=== PATIENT | female | born 1990 | race Caucasian/White ===

== ENCOUNTER → 2025-07-02 | Outpatient (CLI) | payer BC, SELFPAY ==
[2025-07-02 10:44] LABS: Basophils # (Auto) 0.1 Thou/mm3 (0.0-0.2); Basophils % (Auto) 1 % (0-2.5); Eosinophils # (Auto) 0.3 Thou/mm3 (0.0-0.5); Eosinophils % (Auto) 2 % (0-10); Hematocrit 37.7 % (36.0-46.0); Hemoglobin 11.6 g/dL (12.0-16.0); Immature Granulocytes Auto 0.05 Thou/mm3 (0.00-0.00); Lymphocytes # (Auto) 2.9 Thou/mm3 (1.0-4.8); Lymphocytes % (Auto) 21 % (10-50); Mean Corpuscular HGB Conc 30.8 g/dl (31.0-37.0); Mean Corpuscular Hemoglobin 26.1 pg (25.0-35.0); Mean Corpuscular Volume 85 fL (80-100); Monocytes # (Auto) 0.9 Thou/mm3 (0.0-0.8); Monocytes % (Auto) 6 % (0-12); Neutrophils # (Auto) 10.1 Thou/mm3 (1.8-7.7); Neutrophils % (Auto) 71 % (37-80); Nucleated Red Blood Cell # 0.00 Thou/mm3 (0.00-0.00); Nucleated Red Blood Cell % 0 /100 WBC (0); Platelet Count 525 Thou/mm3 (140-440); RDW Standard Deviation 43.0 fL (36.4-46.3); Red Blood Count 4.44 Miln/mm3 (4.00-5.20); White Blood Count 14.3 Thou/mm3 (3.6-11.0)
[2025-07-02 10:58] LABS: Alanine Aminotransferase 11 U/L (10-49); Albumin, Serum 4.2 gm/dL (3.5-5.0); Albumin/Globulin Ratio 1.7 (1.2-2.2); Alkaline Phosphatase 274 U/L (46-116); Anion Gap 9 (7-16); Aspartate Amino Transferase 21 U/L (0-34); BUN/Creatinine Ratio 10 Ratio (12-20); Bilirubin,Total 1.1 mg/dL (0.3-1.2); Blood Urea Nitrogen 7 mg/dL (9-23); Calcium 9.5 mg/dL (8.3-10.6); Calcium (Corrected) 9.5 mg/dL (8.5-10.1); Carbon Dioxide 22.3 mMol/L (20.0-31.0); Chloride 106 mMol/L (98-107); Creatinine (Component) 0.7 mg/dL (0.6-1.3); Globulin 2.5 gm/dL (2.3-3.5); Glucose 77 mg/dL (74-106); Osmolality,Calculated 270 (275-295); Potassium 4.6 mMol/L (3.4-5.1); Sodium 137 mMol/L (136-145); Total Protein 6.7 gm/dL (5.7-8.2); eGFR > 60 See Note
[2025-07-02 11:54] LABS: INR 0.9 (0.9-1.3); Partial Thromboplastin Time 25.4 Seconds (22.0-36.0); Prothrombin Time 10.1 Seconds (9.0-12.2)
[2025-07-02 12:50] LABS: Syphilis Nonreactive (Nonreactive)
== END | disposition home or self-care (01) ==
LOC: COPL 09:39
PROVIDERS: PCP Family Medicine; Referring Provider Specialist; Visit Provider Specialist
DX: Z34.83 Encounter for supervision of other normal pregnancy, third trimester (principal)
CPT/HCPCS: 36415; 80053; 85025; 85610; 85730; 86780; 86850; 86900; 86901

== ENCOUNTER 2025-07-03 05:44 | Inpatient (IN) | payer BC, SELFPAY ==
--- NOTE | 2025-06-29 08:07 | ESHP_ITS ---
RE: ALEXIS VAN : 1990 DATE OF ADMISSION: 07/03/2025 DATE OF SURGERY: 07/03/2025 HISTORY OF PRESENT ILLNESS: This is a 35-year-old 5, para 2-0-2-2 with intrauterine at 39 weeks and 1 day on 07/03/2025, who presents for repeat delivery. She reports occasional contractions. She denies any leaking or bleeding. She reports normal movements. ALLERGIES: NO KNOWN DRUG ALLERGIES. MEDICATIONS: 1. vitamin 1 p.o. daily. 2. Aspirin 81 mg 1 p.o. daily. PAST MEDICAL HISTORY: Anxiety disorder, scoliosis, depression, congenital uterine anomaly, left rudimentary horn. PAST SURGICAL HISTORY: delivery in 06/2022. SOCIAL HISTORY: She denies any alcohol, drug use, or smoking. FAMILY HISTORY: Denies. OBSTETRIC HISTORY: 2019, 40-week normal vaginal delivery, 6 pounds 13 ounce female. No complications. 06/2022, 40-week delivery, 6 pound 14 ounce female. No complications. REVIEW OF SYSTEMS: She denies any chest pain, palpitations, cough, fever, shortness of breath or lower extremity pain. PHYSICAL EXAMINATION: VITAL SIGNS: Blood pressure 110/69, heart rate 88, respirations 18, temperature 98.6, weight 166 pounds. HEENT: Oropharynx and sclerae are clear. LUNGS: Clear to auscultation bilaterally. HEART: Regular rate and rhythm. ABDOMEN: Gravid, term size. Old Pfannenstiel scar noted. EXTREMITIES: Nontender. SKIN: No gross rashes or lesions. NEUROLOGIC: No focal deficits. ASSESSMENT: Intrauterine at 39 weeks and 1 day. Previous delivery. Elects repeat delivery. PLAN: Repeat delivery. Informed consent was obtained. The patient was made aware of the risks, complications, alternatives, and benefits of the proposed procedure and she agrees. DT: 07:06:57 TT: 08:05:00 Ref: [id number] - TID: [id number] MTDD
[2025-07-03] VITALS (17 sets, daily range): BP systolic 88–118; BP diastolic 56–89; PULSE 65–98; RESP 12–20; TEMP 36.3–36.7; O2SAT 96–100; BMI 27.3
[2025-07-03] MEDS: RINGERS LACTATED 1000 ML 1,000 ML 100 ML IV (06:00)
[2025-07-03] MEDS: ceFAZolin/D5W 2 GM IV 2 GM/100 ML BAG IV (07:13)
[2025-07-03] MEDS: FAMOTIDINE INJ 10 MG/ML VIAL 2 ML 20 MG IV (07:14)
[2025-07-03] MEDS: CITRIC ACID/SODIUM CITR 15 ML UDC (BICITRA) 30 ML PO (07:14)
--- NOTE | 2025-07-03 07:16 | PD.GYNPROC ---
Operative Note - STAFF THERAPIST Procedure Date of procedure: 07/03/25 Procedure Performed: Repeat Low Transverse C/S via Pfanensteil Skin Incision Removal of keloid scar Right ovarian cystectomy Indication: Viable IUP 39w1d by best dates. Previous C/S Desires repeat C/S Pre-Op diagnosis: Viable IUP 39w1d by best dates. Previous C/S Desires repeat C/S Post-Op diagnosis: Viable IUP 39w1d by best dates. Previous C/S Desires repeat C/S Right ovarian cyst Anesthesia type: Spinal Procedure description: After proper informed consent was obtained and the patient was made aware of the risks, complications, alternatives and benefits of the proposed procedure she was taken to the operating room where she underwent induction of spinal anesthesia. She was prepped and draped in the usual sterile fashion. A timeout was performed.? A Pfannenstiel skin incision was made and the keloid scar removed. Using the Bovie the incision was carried through to the underlying layer of fascia. The fascia was nicked in the midline incision and the incision was extended bilaterally with the Bovie. The inferior aspect of the fascial incision was grasped with Kelechi clamps elevated and the underlying rectus muscle dissected off with the Bovie. The superior aspect the fascial incision was grasped with Kelechi clamps elevated and the underlying rectus muscle dissected off with the Bovie. The rectus muscles were in the midline. The peritoneum was grasped between 2 Alfredo clamps and entered sharply with the Metzenbaum scissors. The peritoneum was extended superiorly and inferiorly with good visualization of the bladder. The vesicouterine peritoneum was incised transversely and the bladder flap created digitally. A [place] blade was inserted. A low transverse incision was made in the uterus with a scapel and the incision was extended digitally. The infant's head delivered and the mouth and nose were suctioned with the bulb suction. Nuchal cord reduced. The shoulder and body delivered atraumatically. The cord was clamped after 30 second delayed cord clamping and the cord was cut.? The infant was handed off to the waiting Pediatric staff, cord blood was collected for lab testing. The placenta was removed complete and intact. The uterus was exteriorized and cleared of all clots and debris. The uterine incision was closed with #1-0 chromic catgut suture in a running interlocking fashion. A second layer of the same suture was used to imbricate the first layer and obtain excellent hemostasis. The vesicouterine peritoneum was closed with 2-0 chromic catgut suture in a running fashion. The firm uterus was returned to the abdomen. The gutters were cleared of all clots and debris. The peritoneum was closed with 0 chromic catgut suture in running fashion. The rectus muscle was closed with 0 chromic catgut suture. The fascia was closed with 0 Vicryl beginning at each angle and ending in the center in a running fashion. The subcutaneous tissue was irrigated with warmed normal saline solution and found to be hemostatic. The subcutaneous tissue was closed with 2-0 chromic catgut suture in a running fashion. The skin was closed with 4-0 Monocryl. A Dermabond Prineo dressing was applied and a sterile pressure dressing was applied.? She tolerated the procedure well. Counts were correct. I discussed with the patient the nature of her condition, intraoperative findings and expectation for recovery all? questions answered. Specimen: other (Right ovarian cyst.) Estimated blood loss (ml): 600 Findings: Live infant, APGARS 9/9 Wt 3300g Clear amniotic fluid Cephalic. Placenta removed complete and intact Left uterine rudimentary horn. Right ovarian cyst 1.0 x 1.0 cm. Complications: none Surgical staff Louie Operation Date: 07/03/25 07:45 <No data on this case meets the specified criteria> Louie Hernandez [employer] Diagnosis Discharge Diagnosis (1) delivery delivered: Status: Acute (2) Rudimentary uterine horn: Status: Acute (3) Ovarian cyst, right: Status: Acute Problem List Completed Was Problem List Reviewed/Reconciled?: Yes
--- NOTE | 2025-07-03 08:25 | PD.LDDS ---
DS: Providers Provider Date of admission: 07/03/25 05:44 Primary care physician: Jeanmarie Wright MD Admitting Provider: Rodolfo Moura MD Attending Provider on Admission: Rodolfo Moura MD Consults: 07/03/25 07:50 Referral Routine Comment: Attending Provider on DC: Rodolfo Moura MD Discharging Provider: Rodolfo Moura MD DS: Diagnosis Discharge Diagnosis (1) delivery delivered: Status: Acute (2) Rudimentary uterine horn: Status: Acute (3) Ovarian cyst, right: Status: Acute Problem List Completed Was Problem List Reviewed/Reconciled?: Yes Summary/Hosp Course Brief History: This is a 35-year-old 5, para 2-0-2-2 with intrauterine at 39 weeks and 1 day on 07/03/2025, who presents for repeat delivery. She reports occasional contractions. She denies any leaking or bleeding. She reports normal movements. Repeat C/S and Right ovarian cystectomy 07/03 Viable female , APGARS 9/9. 3330g course unremarkable. Peripartum Data Delivery Method: Low Transverse Episiotomy Description: None Procedures: Procedures Operation Date: 07/03/25 07:45 <No data on this case meets the specified criteria> [place] 1: Gender: Female Time Spent with Patient Time attestation: Total time spent providing and/or coordinating discharge services: Exam Vital Signs Pulse BP 98 108/69 07/03/25 05:57 07/03/25 05:57 Discharge Plan Plan Patient Disposition: HOME (Self Care) Patient condition on transfer: Stable Prescriptions/Referrals Prescriptions/Med Rec: New ibuprofen 800 mg tablet 800 mg PO Q6H PRN (Reason: pain) Qty: 30 0RF Continued hydrocodone-acetaminophen 5-325 mg tablet 1 tab PO Q4H MDD 5 PRN (Reason: pain) Qty: 20 0RF Discontinued ibuprofen 800 mg tablet 800 mg PO Q6H PRN (Reason: pain) Qty: 20 0RF ibuprofen 800 mg tablet 800 mg PO Q8H PRN (Reason: pain) Qty: 30 0RF No Action prenat.vits,arvind,dyo-talv-wxhgs Tablet 1 tab PO QDAY Referrals: Kyle (PCP),MD Jeanmarie [Primary Care Provider] - Patient/Caregiver Discharge Instructions Discharge Activity: activity as tolerated Other Discharge Activity Instructions:: Follow up office in [address] Moura She already has a Rx for [place]. Education Materials: C Section Dc Print Language: Occitan Stand Alone Forms: Nancy Award Info., Patient Portal Info Letter Planned Discharge Date 07/05/25
--- NOTE | 2025-07-03 08:26 | OBDSUM_ITS ---
Data ([facility]arter) Data Hx Section: Yes : 5 Term: 0 : 0 Livin Abortions: Spontaneous & Theraputic: 1 Delivery Data (Carter) Labor Data Induction/Augmentation Agent: None ROM date: 07/03/25 ROM time: : Amniotic membrane rupture type: Artificial Amniotic fluid description: Clear Delivery Data EDC: 07/09/25 EDC calculated by:: LMP/early US confirmation delivery date: 07/03/25 delivery time: Gestational age (weeks): 39 Gestational age (days): 1 Placenta delivery date: 07/03/25 Placenta delivery time: Delivered by: Rodolfo Moura Delivery nurse: Antonio Collins RN [place] nurse: Rod NIETO RN Lead Network Engineer at delivery: Yes (Celina Hoyt) Support person(s) at delivery: fob Delivery Method Delivery method: Low Transverse Presentation: Vertex position: OP Anesthesia Type Anesthesia Type: None Anesthesia type: Spinal Placenta Placenta delivery description: Manual Removal Cord blood sent to lab: Yes cord blood collection: Cord Blood Type Episiotomy Episiotomy description: None EBL Estimated blood loss (ml): 600 Umbilical Cord cord description: 3 Vessels Additional Procedures Right ovarian cystectomy Complications Complications: None [place] Data (Carter) Data [place]'s gender: Female weight (gms): 7 lb 4.404 oz Weight (pounds): 7 lbs and 4.4 ozs 1 minute: 9 5 minutes: 9
[2025-07-03] MEDS: OXYTOCIN in NS 20 units 20 UNIT/1,000 ML BAG 125 UNIT IV ×2 (10:12→17:18)
[2025-07-03] MEDS: ONDANSETRON INJ 2 MG/ML INJ 2 ML 4 MG IVP ×2 (14:00→23:26)
[2025-07-03 14:12] LABS: Basophils # (Auto) 0.1 Thou/mm3 (0.0-0.2); Basophils % (Auto) 0 % (0-2.5); Eosinophils # (Auto) 0.0 Thou/mm3 (0.0-0.5); Eosinophils % (Auto) 0 % (0-10); Hematocrit 35.4 % (36.0-46.0); Hemoglobin 11.2 g/dL (12.0-16.0); Immature Granulocytes Auto 0.15 Thou/mm3 (0.00-0.00); Lymphocytes # (Auto) 3.6 Thou/mm3 (1.0-4.8); Lymphocytes % (Auto) 13 % (10-50); Mean Corpuscular HGB Conc 31.6 g/dl (31.0-37.0); Mean Corpuscular Hemoglobin 26.7 pg (25.0-35.0); Mean Corpuscular Volume 85 fL (80-100); Monocytes # (Auto) 2.0 Thou/mm3 (0.0-0.8); Monocytes % (Auto) 7 % (0-12); Neutrophils # (Auto) 22.7 Thou/mm3 (1.8-7.7); Neutrophils % (Auto) 79 % (37-80); Nucleated Red Blood Cell # 0.00 Thou/mm3 (0.00-0.00); Nucleated Red Blood Cell % 0 /100 WBC (0); Platelet Count 495 Thou/mm3 (140-440); RDW Standard Deviation 43.8 fL (36.4-46.3); Red Blood Count 4.19 Miln/mm3 (4.00-5.20); White Blood Count 28.6 Thou/mm3 (3.6-11.0)
[2025-07-03] MEDS: KETOROLAC INJ 30 MG/ML VIAL IVP (15:49)
[2025-07-03] MEDS: RINGERS LACTATED 1000 ML 1,000 ML 999 ML IV (15:50)
[2025-07-03] MEDS: PROMETHAZINE INJ 25 MG in SODIUM CHLORIDE 0.9% 50 ML IV (16:08)
--- NOTE | 2025-07-03 16:28 | PC.CC ---
Grab Hooker received OB referral due to hx of anxiety and depression. Bedside nurse reported Pt had just gotten out of [facility] and will not discharge until Sunday07/05/25- requesting to Talent Manager to conduct assessment tomorrow 07/04/25.
[2025-07-03] MEDS: FUROSEMIDE INJ 10 MG/ML VIAL 2 ML 20 MG IVP (19:17)
[2025-07-03] MEDS: HYDROcodone/APAP 5/325 TABLET 1 TAB PO (23:27)
[2025-07-04] MEDS: RINGERS LACTATED 1000 ML 1,000 ML 100 ML IV (01:39)
[2025-07-04 04:00] VITALS: BP 95/60; PULSE 76; RESP 16; TEMP 36.5; O2SAT 96
[2025-07-04 08:00] VITALS: BP 95/66; PULSE 72; RESP 17; TEMP 36.7; O2SAT 96
[2025-07-04] MEDS: DOCUSATE SOD 100 MG CAPSULE PO (08:58)
[2025-07-04] MEDS: IBUPROFEN TAB 400 MG TABLET 800 MG PO (08:58)
--- NOTE | 2025-07-04 10:54 | PC.CC ---
INSURANCE SERVICE REPRESENTATIVEAurea, met with patient [id number] to do initial assessment due to scoring greater than 10 on post- depression screening. INSURANCE SERVICE REPRESENTATIVE introduced herself, role in the agency, reason for visit, and discussed limits of confidentiality. Patient appeared alert and oriented to self, time, place, and situation. Patient appears stated age. Patient made good eye contact. Patient?s attitude appeared pleasant and cooperative. Patient?s behavior appeared ordinary. Patient?s mood appears ordinary. No signs of delusions or hallucinations. This is 35-year-old, , life partnered female who presented to the hospital to deliver her daughter, Michelle Longoria. Patient confirmed her address and phone number. Patient resides in a home with her fiance, Rolando Frye, and two daughters (ages: 4 y/o and 3 y/o). 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 Patient is independent with all daily activities; she denies any DME use. Patient declined any history or current substance use. Patient declined any involvement with CWS. Patient declined any domestic violence at home. 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 Patient reported that her PCP-Dr. Wright was managing her antidepressants. Prior to , patient was taking sertraline. Patient stopped due to her and feeling sick when taking medication. Patient was referred to a therapist; however, at the time, it was too expensive. Patient reported that she believes her anxiety was environmental duie to living with her in-law's at the time. During her second , patient also experienced the of her mother. Patient denies any history of suicide attempts, 5150 holds. Patient denied any HI, SI. Rolando will remain with patient to assist her and patient does have her in-laws that can help her as well. SW provided psychoeducation regarding baby blues and Post- Depression, as well as counseling groups at [facility]. SW provided community resources: Warm Line. SW provided information for private pscyhiatrist: [facility], [facility].
[2025-07-04 12:00] VITALS: BP 95/62; PULSE 85; RESP 17; TEMP 36.7; O2SAT 97
[2025-07-04] MEDS: HYDROcodone/APAP 5/325 TABLET 1 TAB PO (15:16)
--- NOTE | 2025-07-04 15:26 | PD.LDDS ---
DS: Providers Provider Date of admission: 07/03/25 05:44 Primary care physician: Jeanmarie Wright MD Admitting Provider: Rodolfo Moura MD Attending Provider on Admission: Rodolfo Moura MD Consults: 07/03/25 07:50 Referral Routine Comment: Attending Provider on DC: Amber Tran MD Discharging Provider: Amber Tran MD DS: Diagnosis Discharge Diagnosis (1) delivery delivered: Status: Acute (2) Ovarian cyst, right: Status: Acute Problem List Completed Was Problem List Reviewed/Reconciled?: Yes Summary/Hosp Course Brief History: This is a 35-year-old 5, para 2-0-2-2 with intrauterine at 39 weeks and 1 day on 07/03/2025, who presents for repeat delivery. She reports occasional contractions. She denies any leaking or bleeding. She reports normal movements. Repeat C/S and Right ovarian cystectomy 07/03 Viable female infant , APGARS 9/9. 3330g course unremarkable. --- Henny is doing well on POD1 s/p uncomplicated RLTCS and right ovary cystectomy. She strongly desires to go home this evening since she has two young daughters that she wishes to be home with. She has had an uncomplicated post-operative course, meeting all milestones and feels ready for discharge home. She is ambulating without lightheadedness, tolerating regular diet no n/v, spontaneously voiding without issue. She has no chest pain or shortness of breath. No fevers or chills. Pain well controlled. Vitals normal, benign exam. Hemodynamically stable with no evidence of infection. Post-op Hgb 11.2 from 11.6. Peripartum Data Delivery Method: Low Transverse Episiotomy Description: None Procedures: Procedures Operation Date: 07/03/25 07:45 Actual Procedure Side Surgeon p in OB Rodolfo Moura MD Status at Discharge Functional status at discharge: independent ambulation Overall status at discharge: patient is back to baseline Time Spent with Patient Time attestation: Total time spent providing and/or coordinating discharge services: Exam Vital Signs Temp Pulse Resp BP Pulse Ox O2 Del Method 98.0 F 85 17 95/62 97 Room Air 07/04/25 12:00 07/04/25 12:00 07/04/25 12:00 07/04/25 12:00 07/04/25 12:00 07/04/25 12:00 Narrative Exam General: well developed, well nourished, no acute distress, conversant Cardiac: normal heart rate Lungs: breathing without distress Abdomen: soft, post-gravid, non-tender, no rebound or guarding, pfannenstiel incision covered by dry/clean/intact prineo bandage. Incision well reapproximated. No erythema, drainage or induration. Fundus firm at u-2cm. Extremities: no pain with palpation of calves, trace edema of BLE Discharge Plan Plan Patient Disposition: HOME (Self Care) Patient condition on transfer: Stable Prescriptions/Referrals Prescriptions/Med Rec: New ibuprofen 800 mg tablet 800 mg PO Q6H PRN (Reason: pain) Qty: 30 0RF docusate sodium [Colace] 100 mg capsule 100 mg PO BID Qty: 20 0RF Continued prenat.vits,arvind,eum-evzp-fnerd Tablet 1 tab PO QDAY hydrocodone-acetaminophen 5-325 mg tablet 1 tab PO Q4H MDD 5 PRN (Reason: pain) Qty: 20 0RF Discontinued ibuprofen 800 mg tablet 800 mg PO Q6H PRN (Reason: pain) Qty: 20 0RF ibuprofen 800 mg tablet 800 mg PO Q8H PRN (Reason: pain) Qty: 30 0RF Referrals: Kyle (PCP),MD Jeanmarie [Primary Care Provider] - Patient/Caregiver Discharge Instructions Discharge Activity: activity as tolerated Other Discharge Activity Instructions:: Follow up office in [address] Moura She already has a Rx for [place]. Other Discharge Diet Instructions: regular diet Education Materials: C Section Dc Print Language: Jamaican Activity Restrictions/Additional Instructions: Vaginal rest and no heavy lifting more than 10 pounds for 6 weeks. Keep incision clean and dry, do not submerge. No driving while taking narcotic. Stand Alone Forms: Nancy Award Info., Patient Portal Info Letter Discharge Order Discharge Orders: Discharge (Routine); Ordered 07/04/25 Ordered By: Amber Tran Planned Discharge Date 07/04/25
== END 2025-07-04 19:58 | disposition home or self-care (01) | DRG 788 ==
LOC: S4SX 07:14 → S4NX 08:06
PROVIDERS: Admitting Provider Specialist; PCP Family Medicine; Visit Provider Specialist
PROC: 10D00Z1 Extraction of Products of Conception, Low, Open Approach (ICD-10-PCS; CPT 59514; principal; 2025-07-03 07:30)
DX: O34.211 Maternal care for low transverse scar from previous cesarean delivery (principal); Z3A.39 39 weeks gestation of pregnancy; Z37.0 Single live birth; O69.81X0 Labor and delivery complicated by cord around neck, without compression, not applicable or unspecified; O99.72 Diseases of the skin and subcutaneous tissue complicating childbirth; O34.83 Maternal care for other abnormalities of pelvic organs, third trimester; N83.201 Unspecified ovarian cyst, right side; L91.0 Hypertrophic scar
CPT/HCPCS: 36415; 85025; A4314; A4649; J0689; J1885; J1938; J2250; J2274; J2371; J2405; J2550; J2590; J3490; J7120; A9270; J2270